=== PATIENT | female | born 1940 | race Caucasian/White ===

== ENCOUNTER 2017-04-18 10:37 | Outpatient (CLI) | payer MEDICARE, BC ==
--- NOTE | 2017-04-18 11:37 | MMO ---
BILATERAL SCREENING MAMMOGRAM: DATE: 04/18/17 HISTORY: 77-year-old female for screening mammography. COMPARISON: 08/18/15, 06/12/14. FINDINGS: Bilateral MLO and CC views of the breasts show scattered fibroglandular breast tissue. A benign-appea ring calcification is seen in each breast. There is no evidence of suspicious mass, suspicious cluste r of microcalcifications, or area of architectural distortion. Interpretation of this mammogram was performed with the assistance of computer-aided detection. IMPRESSION: BIRADS 2: Benign Finding(s) Annual screening mammography is recommended. POS: [facility]
== END 2017-04-18 10:38 | disposition home or self-care (01) ==
LOC: SCSMAMMO 10:37
PROVIDERS: ATTEND Family Medicine
DX: Z12.31 Encounter for screening mammogram for malignant neoplasm of breast (principal)
CPT/HCPCS: 77067

== ENCOUNTER 2020-07-16 18:05 | Inpatient (IN) | payer MEDICARE, BC ==
[2020-07-16 18:42] LABS: #Eosinphils 0.1 thou/uL (0.0-0.7); #Monocytes 0.3 thou/uL (0.11-0.59); %Basophils 0.1 % (0.0-1.0); %Eosinophils 2.3 % (0.0-10.0); %Lymphocytes 29.8 % (21.0-51.0); %Monocytes 7.8 % (0.0-10.0); %Neutrophils 60.1 % (42.0-75.0); Hemoglobin 7.2 g/dL (12.0-16.0); Mean Corpuscular Volume 99.8 fL (78.0-98.0); Mean Platelet Volume 7.7 fL (7.4-10.4); Platelet Count 184 thou/uL (130-400); RBC Distribution Width 15.5 % (11.5-14.5); White Blood Cell (WBC) Count 3.3 thou/uL (4.8-10.8)
[2020-07-16 19:02] LABS: ALT (SGPT) 16 U/L (8-55); AST (SGOT) 27 U/L (5-34); Albumin 3.8 g/dL (3.4-4.8); Alkaline Phosphatase 58 U/L (40-110); Anion Gap 13 mmol/L (10-20); BUN (Urea Nitrogen) 28 mg/dL (9.8-20.1); Bilirubin, Total 0.2 mg/dL (0.2-1.2); Calc. Creatinine Clearance 0 mL/min (70-130); Calcium 8.8 mg/dL (7.8-10.44); Carbon Dioxide 25 mmol/L (23-31); Chloride 104 mmol/L (98-107); Globulin 2.7 g/dL (2.4-3.5); Glucose 302 mg/dL (83-110); Potassium 4.1 mmol/L (3.5-5.1); Protein, Total 6.5 g/dL (5.8-8.1); Sodium 138 mmol/L (136-145)
[2020-07-16 21:32] LABS: PTT 26.4 sec (22.9-36.1); Prothrombin Time 13.2 sec (12.0-14.7)
[2020-07-16] MEDS ORDERED: Pantoprazole 40 MG VIAL ONE (23:01)
[2020-07-16] MEDS ORDERED: Ondansetron ODT 4 MG TAB PO PRN (23:23)
[2020-07-16] MEDS ORDERED: Ondansetron PF 4 MG/2 ML Vial IVP PRN (23:23)
[2020-07-16] MEDS ORDERED: Acetaminophen 325 MG TAB PO PRN (23:23)
[2020-07-16] MEDS ORDERED: Dextrose 50% Abboject 50 ML SYRINGE SLOW IVP PRN (23:23)
[2020-07-16] MEDS ORDERED: Dextrose 5% in Water 1,000 ML IV PRN (23:23)
[2020-07-16] MEDS ORDERED: HumaLOG 300 UNITS/3 ML VIAL SC PRN (23:23)
[2020-07-16] MEDS ORDERED: HYDROcodone/Acetaminophen 5/325 mg Tablet PO PRN (23:23)
[2020-07-17 00:14] VITALS: BMI 35.2
[2020-07-17 04:24] LABS: SARS-CoV-2 PCR by NAA Not Detected (NotDetected)
[2020-07-17 06:17] LABS: #Eosinphils 0.1 thou/uL (0.0-0.7); #Lymphocytes 1.5 thou/uL (1.20-3.40); #Monocytes 0.3 thou/uL (0.11-0.59); #Neutrophils 2.1 thou/uL (1.40-6.50); %Basophils 0.7 % (0.0-1.0); %Eosinophils 2.9 % (0.0-10.0); %Lymphocytes 36.4 % (21.0-51.0); %Monocytes 7.8 % (0.0-10.0); %Neutrophils 52.2 % (42.0-75.0); Hemoglobin 8.8 g/dL (12.0-16.0); Mean Corpuscular HGB CONC 32.1 g/dL (32.0-36.0); Mean Corpuscular Hemoglobin 30.8 pg (27.0-31.0); Mean Corpuscular Volume 96.1 fL (78.0-98.0); Mean Platelet Volume 7.7 fL (7.4-10.4); Platelet Count 186 thou/uL (130-400); RBC Distribution Width 17.1 % (11.5-14.5); Red Blood Cell (RBC) Count 2.87 mill/uL (4.20-5.40)
[2020-07-17 06:27] LABS: Anion Gap 11 mmol/L (10-20); BUN (Urea Nitrogen) 26 mg/dL (9.8-20.1); Calc. Creatinine Clearance 65 mL/min (70-130); Calcium 8.7 mg/dL (7.8-10.44); Carbon Dioxide 25 mmol/L (23-31); Chloride 109 mmol/L (98-107); Glucose 118 mg/dL (83-110); Sodium 141 mmol/L (136-145)
[2020-07-17] MEDS ORDERED: Enoxaparin Sodium 40 MG/0.4 ML SYRINGE SC SCH (09:00)
[2020-07-17] MEDS ORDERED: Pantoprazole 40 MG VIAL IVP SCH (09:00)
[2020-07-17] MEDS ORDERED: PROPOFOL 200 MG/20 ML VIAL ONE (14:04)
[2020-07-17] MEDS ORDERED: Lidocaine 1% PF 5 ML VIAL ONE (14:04)
[2020-07-17] MEDS: Glimepiride 4 MG TAB PO SCH (15:48)
[2020-07-17] MEDS: Ferrous Sulfate 325 MG TAB PO SCH ×2 (15:48→20:22)
[2020-07-17] MEDS ORDERED: EXENATIDE 10 MCG/0.04 ML SC SCH (16:30)
[2020-07-17] MEDS ORDERED: GoLYTELY 4,000 ml Bottle PO SCH (17:00)
[2020-07-17] MEDS: metFORMIN 500 MG TAB PO SCH (17:53)
[2020-07-18] MEDS: Levothyroxine Sodium 125 MCG TAB PO SCH (06:41)
[2020-07-18] MEDS: Glimepiride 4 MG TAB PO SCH ×2 (06:43→16:55)
[2020-07-18] MEDS ORDERED: CHROMIUM PICOLINATE 1000 MCG PO SCH (09:00)
[2020-07-18] MEDS: Ferrous Sulfate 325 MG TAB PO SCH ×3 (09:08→21:51)
[2020-07-18] MEDS: Cyanocobalamin (Vitamin B-12) 1,000 MCG TAB PO SCH (09:08)
[2020-07-18] MEDS: metFORMIN 500 MG TAB PO SCH ×2 (09:08→17:34)
[2020-07-18] MEDS: Losartan 25 MG TAB PO SCH (09:09)
[2020-07-18] MEDS: Empagliflozin 25 MG TAB PO SCH (09:09)
[2020-07-18 09:22] LABS: #Eosinphils 0.1 thou/uL (0.0-0.7); #Monocytes 0.3 thou/uL (0.11-0.59); #Neutrophils 2.1 thou/uL (1.40-6.50); %Basophils 0.3 % (0.0-1.0); %Eosinophils 2.5 % (0.0-10.0); %Lymphocytes 27.8 % (21.0-51.0); %Monocytes 9.1 % (0.0-10.0); %Neutrophils 60.4 % (42.0-75.0); Hemoglobin 9.4 g/dL (12.0-16.0); Mean Corpuscular HGB CONC 33.3 g/dL (32.0-36.0); Mean Corpuscular Hemoglobin 32.2 pg (27.0-31.0); Mean Corpuscular Volume 96.6 fL (78.0-98.0); Mean Platelet Volume 7.3 fL (7.4-10.4); Platelet Count 185 thou/uL (130-400); RBC Distribution Width 16.8 % (11.5-14.5); Red Blood Cell (RBC) Count 2.92 mill/uL (4.20-5.40); White Blood Cell (WBC) Count 3.5 thou/uL (4.8-10.8)
[2020-07-18 09:41] LABS: Anion Gap 12 mmol/L (10-20); BUN (Urea Nitrogen) 14 mg/dL (9.8-20.1); Calc. Creatinine Clearance 83 mL/min (70-130); Calcium 8.5 mg/dL (7.8-10.44); Carbon Dioxide 25 mmol/L (23-31); Chloride 106 mmol/L (98-107); Glucose 111 mg/dL (83-110); Potassium 3.8 mmol/L (3.5-5.1); Sodium 139 mmol/L (136-145)
[2020-07-18] MEDS ORDERED: Lidocaine 1% PF 5 ML VIAL ONE (19:18)
[2020-07-18] MEDS ORDERED: PROPOFOL 200 MG/20 ML VIAL ONE (19:18)
[2020-07-19 05:31] LABS: #Eosinphils 0.1 thou/uL (0.0-0.7); #Lymphocytes 1.2 thou/uL (1.20-3.40); #Monocytes 0.3 thou/uL (0.11-0.59); #Neutrophils 3.2 thou/uL (1.40-6.50); %Basophils 0.1 % (0.0-1.0); %Lymphocytes 24.6 % (21.0-51.0); %Monocytes 6.8 % (0.0-10.0); %Neutrophils 66.5 % (42.0-75.0); Mean Corpuscular HGB CONC 32.9 g/dL (32.0-36.0); Mean Corpuscular Hemoglobin 31.7 pg (27.0-31.0); Mean Corpuscular Volume 96.4 fL (78.0-98.0); Mean Platelet Volume 7.3 fL (7.4-10.4); Platelet Count 181 thou/uL (130-400); RBC Distribution Width 16.3 % (11.5-14.5); Red Blood Cell (RBC) Count 2.84 mill/uL (4.20-5.40); White Blood Cell (WBC) Count 4.8 thou/uL (4.8-10.8)
[2020-07-19 05:55] LABS: Anion Gap 13 mmol/L (10-20); BUN (Urea Nitrogen) 10 mg/dL (9.8-20.1); Calc. Creatinine Clearance 82 mL/min (70-130); Calcium 8.5 mg/dL (7.8-10.44); Carbon Dioxide 24 mmol/L (23-31); Chloride 105 mmol/L (98-107); Glucose 133 mg/dL (83-110); Potassium 3.7 mmol/L (3.5-5.1); Sodium 138 mmol/L (136-145)
[2020-07-19] MEDS: Glimepiride 4 MG TAB PO SCH (06:41)
[2020-07-19] MEDS: Levothyroxine Sodium 125 MCG TAB PO SCH (06:41)
[2020-07-19] MEDS: metFORMIN 500 MG TAB PO SCH (10:20)
[2020-07-19] MEDS: Ferrous Sulfate 325 MG TAB PO SCH (10:20)
[2020-07-19] MEDS: Losartan 25 MG TAB PO SCH (10:27)
[2020-07-19] MEDS: Cyanocobalamin (Vitamin B-12) 1,000 MCG TAB PO SCH (10:27)
[2020-07-19] MEDS: Empagliflozin 25 MG TAB PO SCH (10:27)
[2020-07-19 12:17] VITALS: BP 145/65; TEMP 98.7
== END 2020-07-19 13:10 | disposition home or self-care (01) | DRG 394 ==
LOC: ERS 18:05 → SURG A 22:06
PROVIDERS: ADMIT Student in an Organized Health Care Education/Training Program; ATTEND Internal Medicine
PROC: 0DB78ZX Excision of Stomach, Pylorus, Via Natural or Artificial Opening Endoscopic, Diagnostic (ICD-10-PCS; principal; 2020-07-17)
PROC: 0DBL8ZX Excision of Transverse Colon, Via Natural or Artificial Opening Endoscopic, Diagnostic (ICD-10-PCS; 2020-07-17)
PROC: 0DBK8ZZ Excision of Ascending Colon, Via Natural or Artificial Opening Endoscopic (ICD-10-PCS; 2020-07-17)
PROC: 0DBN8ZZ Excision of Sigmoid Colon, Via Natural or Artificial Opening Endoscopic (ICD-10-PCS; 2020-07-17)
PROC: 0W3P8ZZ Control Bleeding in Gastrointestinal Tract, Via Natural or Artificial Opening Endoscopic (ICD-10-PCS; 2020-07-17)
DX: K63.81 Dieulafoy lesion of intestine (principal); D62 Acute posthemorrhagic anemia; K22.10 Ulcer of esophagus without bleeding; N17.9 Acute kidney failure, unspecified; Z20.822 Contact with and (suspected) exposure to COVID-19; E11.22 Type 2 diabetes mellitus with diabetic chronic kidney disease; E11.51 Type 2 diabetes mellitus with diabetic peripheral angiopathy without gangrene; E03.9 Hypothyroidism, unspecified; E78.5 Hyperlipidemia, unspecified; E78.00 Pure hypercholesterolemia, unspecified; I12.9 Hypertensive chronic kidney disease with stage 1 through stage 4 chronic kidney disease, or unspecified chronic kidney disease; K63.5 Polyp of colon; K44.9 Diaphragmatic hernia without obstruction or gangrene; N18.30 Chronic kidney disease, stage 3 unspecified; F17.200 Nicotine dependence, unspecified, uncomplicated; K20.90 Esophagitis, unspecified without bleeding; D63.1 Anemia in chronic kidney disease; K31.7 Polyp of stomach and duodenum; Z93.3 Colostomy status; Z79.84 Long term (current) use of oral hypoglycemic drugs; Z79.82 Long term (current) use of aspirin; Z79.899 Other long term (current) drug therapy
CPT/HCPCS: 36415; 36416; 36430; 71045; 80048; 80053; 82270; 85025; 85610; 85730; 86850; 86900; 86901; 87635; 88305; 93005; 93306; 96374; C9113; J1815; J2704; P9016; U0003; U0005

== ENCOUNTER 2021-04-13 16:17 | Outpatient (CLI) | payer MEDICARE, BC ==
[2021-04-13 17:10] LABS: #Eosinphils 0.1 10x3/uL (0.0-0.5); #Monocytes 0.3 10x3/uL (0.0-1.1); #Neutrophils 2.2 10x3/uL (1.5-8.4); %Basophils 0.2 % (0.0-2.0); %Eosinophils 2.2 % (0.0-6.0); %Lymphocytes 35.6 % (18.0-47.0); %Monocytes 6.4 % (0.0-10.0); %Neutrophils 55.4 % (40.0-75.0); Hemoglobin 12.2 g/dL (12.0-15.5); Mean Corpuscular HGB CONC 32.3 g/dL (32.0-36.0); Mean Corpuscular Hemoglobin 29.4 pg (27.0-33.0); Mean Corpuscular Volume 91.1 fl (81.6-98.3); Mean Platelet Volume 10.2 fl (7.4-10.4); Platelet Count 162 10x3/uL (150-450); RBC Distribution Width 13.9 % (11.5-14.5); Red Blood Cell (RBC) Count 4.15 10x6/uL (3.90-5.03); White Blood Cell (WBC) Count 4.1 10x3/uL (3.5-10.5)
[2021-04-13 17:42] LABS: Anion Gap 15 mmol/L (10-20); BUN (Urea Nitrogen) 27 mg/dL (9.8-20.1); Calc. Creatinine Clearance 0 mL/min (70-130); Calcium 9.2 mg/dL (7.8-10.44); Carbon Dioxide 27 mmol/L (23-31); Chloride 103 mmol/L (98-107); Glucose 247 mg/dL (83-110); Potassium 4.5 mmol/L (3.5-5.1); Sodium 140 mmol/L (136-145)
[2021-04-14 07:29] LABS: SARS-CoV-2 PCR by NAA Not Detected (NotDetected)
== END 2021-04-13 16:18 | disposition home or self-care (01) ==
LOC: LABBT 16:17
PROVIDERS: ATTEND Specialist
DX: Z01.818 Encounter for other preprocedural examination (principal); K43.2 Incisional hernia without obstruction or gangrene; Z20.822 Contact with and (suspected) exposure to COVID-19
CPT/HCPCS: 71046; 80048; 85025; U0003; U0005; 93005; 93010

== ENCOUNTER 2021-04-16 06:01 | Day surgery (SDC) | payer MEDICARE, BC ==
[2021-04-09 12:25] VITALS: BMI 31.6
[2021-04-16] MEDS ORDERED: PROPOFOL 200 MG/20 ML VIAL ONE (08:14)
[2021-04-16] MEDS ORDERED: Glycopyrrolate 0.2 MG/ML 5 ML SYRINGE ONE (08:14)
[2021-04-16] MEDS ORDERED: Lidocaine 1% PF 5 ML VIAL ONE (08:14)
[2021-04-16] MEDS ORDERED: Ondansetron PF 4 MG/2 ML Vial ONE (08:14)
[2021-04-16] MEDS ORDERED: ePHEDrine 50 MG/ML VIAL ONE (08:14)
[2021-04-16] MEDS ORDERED: PHENYLEPHRINE-NS 100 MCG/ML 10 ML SYRINGE ONE (08:14)
[2021-04-16] MEDS ORDERED: Rocuronium Bromide 10 MG/ML (10ML VIAL) ONE (08:14)
== END 2021-04-16 13:15 | disposition home or self-care (01) ==
LOC: SDC 06:01
PROVIDERS: ATTEND Specialist
PROC: 0WUF4JZ Supplement Abdominal Wall with Synthetic Substitute, Percutaneous Endoscopic Approach (ICD-10-PCS; principal; 2021-04-16)
DX: K43.2 Incisional hernia without obstruction or gangrene (principal); K66.0 Peritoneal adhesions (postprocedural) (postinfection); E11.9 Type 2 diabetes mellitus without complications; E78.5 Hyperlipidemia, unspecified; E03.9 Hypothyroidism, unspecified; I10 Essential (primary) hypertension; D64.9 Anemia, unspecified; Z86.010 Personal history of colon polyps; Z79.4 Long term (current) use of insulin; Z79.82 Long term (current) use of aspirin; Z79.84 Long term (current) use of oral hypoglycemic drugs; Z79.899 Other long term (current) drug therapy; Z90.49 Acquired absence of other specified parts of digestive tract
CPT/HCPCS: 36416; C1781; J2405; J2704; J3490

== ENCOUNTER 2023-03-21 11:52 | Outpatient (CLI) | payer MEDICARE, BC | END 2023-03-21 11:53 | disposition home or self-care (01) | LOC: ULT 11:52 | PROVIDERS: ATTEND Family Medicine | DX: R09.89 Other specified symptoms and signs involving the circulatory and respiratory systems (principal); I65.23 Occlusion and stenosis of bilateral carotid arteries | CPT/HCPCS: 93880 ==

== ENCOUNTER 2023-04-01 11:35 | Outpatient (CLI) | payer MEDICARE, BC | END 2023-04-01 11:36 | disposition home or self-care (01) | LOC: CT 11:35 | PROVIDERS: ATTEND Family Medicine | DX: I65.23 Occlusion and stenosis of bilateral carotid arteries (principal) | CPT/HCPCS: 70498; 82565 ==

== ENCOUNTER 2023-12-30 10:22 | Outpatient (CLI) | payer MEDICARE, BC | END 2023-12-30 10:23 | disposition home or self-care (01) | LOC: SCSRAD 10:22 | PROVIDERS: ATTEND Family Medicine | DX: M25.562 Pain in left knee (principal) ==

== ENCOUNTER 2024-05-25 08:25 | Day surgery (SDC) | payer MEDICARE, BC ==
[2024-05-24 09:28] VITALS: BMI 33.5
[2024-05-25 10:44] LABS: #Basophils 0.03 10x3/uL (0.0-0.2); %Basophils 0.5 % (0.0-1.0); %Eosinophils 1.1 % (0.0-10.0); %Lymphocytes 24.6 % (21.0-51.0); %Monocytes 6.1 % (0.0-10.0); %Neutrophils 67.3 % (42.0-75.0); Hematocrit 34.4 % (36.0-47.0); Hemoglobin 11.3 g/dL (12.0-16.0); Mean Corpuscular HGB CONC 32.8 g/dL (32.0-36.0); Mean Corpuscular Hemoglobin 29.1 pg (27.0-31.0); Mean Corpuscular Volume 88.7 fL (78.0-98.0); Platelet Count 154 10x3/uL (130-400); RBC Distribution Width 14.6 % (11.5-14.5); Red Blood Cell (RBC) Count 3.88 mill/uL (4.20-5.40)
[2024-05-25] MEDS ORDERED: Ipratropium/Albuterol 3 ML NEB ONE (11:11)
[2024-05-25 11:13] LABS: Anion Gap 19 mmol/L (10-20); BUN (Urea Nitrogen) 17 mg/dL (9.8-20.1); Calc. Creatinine Clearance 56 mL/min (70-130); Calcium 9.9 mg/dL (7.8-10.44); Carbon Dioxide 24 mmol/L (23-31); Chloride 103 mmol/L (98-107); Estimated GFR 51; Glucose 277 mg/dL (83-110); Potassium 4.5 mmol/L (3.5-5.1); Sodium 141 mmol/L (136-145)
[2024-05-25] MEDS ORDERED: Apixaban 5 MG TAB ONE (12:44)
[2024-05-25] MEDS ORDERED: Apixaban 5 MG TAB PO SCH (13:00)
== END 2024-05-25 13:05 | disposition home or self-care (01) ==
LOC: SDC 08:25
PROVIDERS: ATTEND Internal Medicine Cardiovascular Disease
PROC: 5A2204Z Restoration of Cardiac Rhythm, Single (ICD-10-PCS; principal; 2024-05-25)
DX: I48.19 Other persistent atrial fibrillation (principal); I10 Essential (primary) hypertension; E11.9 Type 2 diabetes mellitus without complications; E03.9 Hypothyroidism, unspecified; I48.0 Paroxysmal atrial fibrillation; I35.0 Nonrheumatic aortic (valve) stenosis; K92.2 Gastrointestinal hemorrhage, unspecified; D50.8 Other iron deficiency anemias; I49.1 Atrial premature depolarization; I65.23 Occlusion and stenosis of bilateral carotid arteries; E78.2 Mixed hyperlipidemia; E78.00 Pure hypercholesterolemia, unspecified; Z90.49 Acquired absence of other specified parts of digestive tract; Z98.890 Other specified postprocedural states; Z98.41 Cataract extraction status, right eye; Z98.42 Cataract extraction status, left eye; Z79.84 Long term (current) use of oral hypoglycemic drugs; Z79.01 Long term (current) use of anticoagulants; Z79.82 Long term (current) use of aspirin; Z79.899 Other long term (current) drug therapy
CPT/HCPCS: 80048; 85025; 92960; 93005; 93010; J7620

== ENCOUNTER 2024-11-14 15:09 | Outpatient (CLI) | payer MEDICARE, BC | END 2024-11-14 15:10 | disposition home or self-care (01) | LOC: BICMAMMO 15:09 | PROVIDERS: ATTEND Family Medicine | DX: Z78.0 Asymptomatic menopausal state (principal) | CPT/HCPCS: 77080 ==

== ENCOUNTER 2025-01-29 12:34 | Outpatient (CLI) | payer MEDICARE, BC ==
[2025-01-29 13:43] LABS: #Basophils Less than 0.03 10x3/uL (0.0-0.2); #Eosinophils 0.06 10x3/uL (0.0-0.7); #Monocytes 0.29 10x3/uL (0.11-0.59); #Neutrophils 3.45 10x3/uL (1.40-6.50); %Basophils 0.2 % (0.0-1.0); %Eosinophils 1.3 % (0.0-10.0); %Lymphocytes 19.5 % (21.0-51.0); %Monocytes 6.1 % (0.0-10.0); %Neutrophils 72.5 % (42.0-75.0); Hematocrit 36.5 % (36.0-47.0); Hemoglobin 11.5 g/dL (12.0-16.0); Mean Corpuscular Hemoglobin 28.5 pg (27.0-31.0); Mean Corpuscular Volume 90.6 fL (78.0-98.0); Platelet Count 196 10x3/uL (130-400); Red Blood Cell (RBC) Count 4.03 mill/uL (4.20-5.40); White Blood Cell (WBC) Count 4.76 10x3/uL (4.8-10.8)
[2025-01-29 14:17] LABS: Anion Gap 14 mmol/L (10-20); BUN (Urea Nitrogen) 15 mg/dL (9.8-20.1); Calc. Creatinine Clearance 0 mL/min (70-130); Calcium 9.4 mg/dL (7.8-10.44); Carbon Dioxide 26 mmol/L (23-31); Chloride 100 mmol/L (98-107); Glucose 458 mg/dL (83-110); Potassium 4.4 mmol/L (3.5-5.1); Sodium 136 mmol/L (136-145)
== END 2025-01-29 12:35 | disposition home or self-care (01) ==
LOC: LABBT 12:34
PROVIDERS: ATTEND Internal Medicine Cardiovascular Disease
DX: Z01.812 Encounter for preprocedural laboratory examination (principal); I48.19 Other persistent atrial fibrillation
CPT/HCPCS: 80048; 85025

== ENCOUNTER 2025-01-30 10:40 | Day surgery (SDC) | payer MEDICARE ==
[2025-01-29 12:58] VITALS: BMI 33.6
[2025-01-30 11:54] LABS: #Basophils Less than 0.03 10x3/uL (0.0-0.2); #Eosinophils 0.06 10x3/uL (0.0-0.7); #Monocytes 0.28 10x3/uL (0.11-0.59); #Neutrophils 2.84 10x3/uL (1.40-6.50); %Basophils 0.5 % (0.0-1.0); %Eosinophils 1.4 % (0.0-10.0); %Lymphocytes 24.6 % (21.0-51.0); %Monocytes 6.6 % (0.0-10.0); %Neutrophils 66.7 % (42.0-75.0); Hematocrit 35.0 % (36.0-47.0); Hemoglobin 11.3 g/dL (12.0-16.0); Mean Corpuscular Hemoglobin 29.0 pg (27.0-31.0); Mean Corpuscular Volume 89.7 fL (78.0-98.0); Platelet Count 196 10x3/uL (130-400); Red Blood Cell (RBC) Count 3.90 mill/uL (4.20-5.40); White Blood Cell (WBC) Count 4.26 10x3/uL (4.8-10.8)
[2025-01-30 12:08] LABS: Anion Gap 16 mmol/L (10-20); BUN (Urea Nitrogen) 15 mg/dL (9.8-20.1); Calc. Creatinine Clearance 48 mL/min (70-130); Calcium 9.4 mg/dL (7.8-10.44); Carbon Dioxide 26 mmol/L (23-31); Chloride 103 mmol/L (98-107); Glucose 266 mg/dL (83-110); INR-International Normal Ratio 1.4; Potassium 3.7 mmol/L (3.5-5.1); Prothrombin Time 17.6 sec (12.0-14.7); Sodium 141 mmol/L (136-145)
[2025-01-30 12:09] LABS: PTT 35.1 sec (22.9-36.1)
[2025-01-30] MEDS ORDERED: Lidocaine 1% PF 5 ML VIAL ONE (12:40)
[2025-01-30] MEDS ORDERED: PROPOFOL 200 MG/20 ML VIAL ONE (12:40)
== END 2025-01-30 13:46 | disposition home or self-care (01) ==
LOC: SDC 10:40
PROVIDERS: ATTEND Internal Medicine Cardiovascular Disease
PROC: 5A2204Z Restoration of Cardiac Rhythm, Single (ICD-10-PCS; principal; 2025-01-30)
DX: I48.19 Other persistent atrial fibrillation (principal); I44.7 Left bundle-branch block, unspecified; I49.1 Atrial premature depolarization; I65.23 Occlusion and stenosis of bilateral carotid arteries; I35.0 Nonrheumatic aortic (valve) stenosis; E11.9 Type 2 diabetes mellitus without complications; E78.2 Mixed hyperlipidemia; E03.9 Hypothyroidism, unspecified; K92.2 Gastrointestinal hemorrhage, unspecified; D50.8 Other iron deficiency anemias; Z98.41 Cataract extraction status, right eye; Z98.42 Cataract extraction status, left eye; Z90.49 Acquired absence of other specified parts of digestive tract; Z98.890 Other specified postprocedural states; Z79.890 Hormone replacement therapy; Z79.84 Long term (current) use of oral hypoglycemic drugs; Z79.85 Long-term (current) use of injectable non-insulin antidiabetic drugs; Z79.899 Other long term (current) drug therapy
CPT/HCPCS: 80048; 85025; 85610; 85730; 92960; 93005; J2704; 93010